=== PATIENT | female | born 1970 | race Caucasian/White ===

== ENCOUNTER 2025-08-25 10:55 | Outpatient (AMB) | payer OTHER, SELFPAY ==
--- NOTE | 2025-08-25 11:25 | A.PHYSOV ---
Vital Signs 08/25/25 11:27 Height 5 ft 6 in Weight 145 lb BMI 23.4 Intake Visit Reasons: [facility] REF-BACK + LOWER BACK PAIN Intake Note: Patient is a 55 year old female in office today as new patient neck pain and low back Allergies Penicillins Allergy (Unknown, Verified 08/25/25 11:27) Unknown HPI Comments Details: History of Present Illness The patient is a 55 year old individual presenting for evaluation of chronic neck and low back pain. The patient reports being in constant pain and having daily headaches. Headaches are reported in occipital region primarily. Headaches are rated 8/10. The patient has a history of C4-C7 ACDF. The patient also underwent an L5-S1 lumbar fusion a couple of years ago in [place]. The patient is currently awaiting surgical consultation. Most recent lumbosacral spine MRI was done on 09/01/2024. L5-S1 fusion was demonstrated. Images were independently reviewed. Broad-based disc osteophyte complex was described and demonstrated at the L4-L5 level with crowding of the traversing L5 nerve roots. She reports left lumbar radiculitis in the L5 dermatomal distribution. Cervical spine MRI was recently repeated on 06/09/2025. In images were reviewed. Anterior cervical diskectomy and fusion was demonstrated at the C4 through C7 levels, otherwise MRI was noncontributory. Mild facet arthropathy was demonstrated at the C2-C3 and C3-C4 level. For pain management, the patient is prescribed oxycodone-acetaminophen 10/325 mg to be taken three times a day but tries to limit usage to once or twice daily, which helps with sleep. Past treatments include injections, which offered minimal, short-term relief, and physical therapy many years ago, which was not helpful. The patient has previously tried gabapentin and duloxetine (Cymbalta) without benefit. The patient is on disability. Pain Description - Onset and Timing: The patient reports being in constant, chronic pain. - Location: Pain is located in the neck and lower back, with daily headaches at the base of the skull. - Radiation: Pain from the lower back radiates down the left leg to the top of the foot and big toe, with associated tingling. - Quality and Character: Neck movement causes a shocking pain. - Associated Symptoms: The patient also reports a new burning sensation under the arm. - Exacerbating Factors: Neck pain is worse with movement. - Exacerbating Factors: Low back pain is worse with sitting, and the left hip hurts when sitting or lying on that side. - Alleviating Factors: Neck pain is better when not moving the head. - Alleviating Factors: Walking with a shopping cart makes the back pain easier to manage. Results - Imaging: Cervical spine MRI from approximately 06/09/2025 showed multilevel fusion from C4-C7. - Imaging: Lumbar spine MRI 09/03/2024 as described above. - Imaging: Left hip MRI has been requested, currently pending. [facility] Medical History (Updated 08/25/25 @ 12:40 by Indio Oliver DO) Spondylosis of cervical region without myelopathy or radiculopathy Post laminectomy syndrome Lumbar radiculitis Cervicocranial syndrome Neck pain Surgical History (Updated 08/17/25 @ 10:54 by Ira Kennedy MA) History of carpal tunnel surgery (Unknown) History of neck surgery (Unknown) H/O bilateral breast reduction surgery (Unknown) H/O shoulder surgery (Unknown) Hx of hemorrhoidectomy (Unknown) History of back surgery (Unknown) Social History (Updated 08/25/25 @ 11:28 by Ira Kennedy MA) Household Members: Spouse Alcohol intake: current Alcohol intake frequency: a few times a week Patient Tobacco Use Status: Never used Tobacco Use of substances other than those prescribed or required for medical reasons: No Current occupational status: disabled Review of Systems Narrative Review of Systems - Neurological: Reports constant daily headaches. - Neurological: Reports shocking pain in the neck with movement. - Neurological: Reports pain radiating down the left leg with tingling in the top of the foot and big toe. - Neurological: Reports a burning sensation under the arm. - Musculoskeletal: Reports chronic pain in the neck and lower back. Physical Exam Exam Exam: Physical Exam - Musculoskeletal: Palpation of the neck demonstrates tenderness at the base of the skull and over the upper cervical facet area, which is also noted to be very tight. - Musculoskeletal: Palpation of the left hip reveals tenderness over the trochanteric area. Dural tension signs were negative. Gait was slightly antalgic on the left side. Cervical range of motion was restricted in all planes. Tenderness with palpation over upper cervical facet joints. Pain with posterior lumbar facet loading. Lumbar extension was restricted. SI provocative maneuvers were negative. Neurological examination reveals mild weakness of the left EHL, symmetric bilateral patellar and Achilles reflexes. Neurological examination of upper extremities was nonfocal. Patient demonstrated positive Leatha reflex. Babinski was downgoing bilaterally. Vital Signs: BMI result Body Mass Index 23.4 Assessment & Plan Assessment & Plan (1) Neck pain: Code(s): M54.2 - Cervicalgia Category: Medical (2) Cervicocranial syndrome: Code(s): M53.0 - Cervicocranial syndrome Category: Medical (3) Lumbar radiculitis: Code(s): M54.16 - Radiculopathy, lumbar region Category: Medical (4) Post laminectomy syndrome: Code(s): M96.1 - Postlaminectomy syndrome, not elsewhere classified Category: Medical (5) Spondylosis of cervical region without myelopathy or radiculopathy: Code(s): M47.812 - Spondylosis without myelopathy or radiculopathy, cervical region Category: Medical Plan Pain Management - Analgesia: The patient is prescribed oxycodone-acetaminophen 10/325 mg TID but self-limits to 1-2 doses per day. - Affect: The patient reports being in constant pain and restarted oxycodone because the pain was unbearable. - Activities of Daily Living: The patient is on disability and has difficulty walking any distance due to pain. - Aberrant Drug Related Behaviors: The patient reports taking less opioid medication than prescribed. Plan Patient was informed and verbally consented to the use of an ambient scribe for clinic note documentation during this visit. 1. Cervicogenic Headache The patient's daily headaches are assessed to be cervicogenic, likely originating from the facet joints above the C4-C7 fusion (C2-C3 and C3-C4), which are under increased stress. A plan was made for bilateral C2-C3 and C3-C4 facet injections to be performed with sedation at [facility]. It was discussed that if the injections provide only short-term relief, the patient would be a candidate for radiofrequency ablation, which would require a referral. 2. Chronic Low Back Pain And Left Lumbosacral Radiculopathy The patient's chronic low back pain with radiculopathy is likely multifactorial, stemming from post-surgical changes and degeneration above the L5-S1 fusion, likely at L4-L5, which does not appear surgical based on the prior MRI. The patient is awaiting a neurosurgery consultation. In the interim, a left L4 transforaminal injection will be performed in the office to address symptoms. Left trochanteric bursitis is also considered a contributor to lateral hip pain. Risks and benefits of the procedure were discussed with the patient. Potential alternative measures were also discussed. Patient understands that the procedure is completely elective. Potential side effects associated with injectable medications were discussed. All questions were answered to the patient's satisfaction. Discussion Notes I discussed with the patient that the daily headaches are likely cervicogenic, originating from the joints above the prior C4-C7 fusion. I recommended diagnostic and therapeutic bilateral C2-C3 and C3-C4 facet injections, to be performed with sedation at [facility]. I explained that if this provides good but temporary relief, the next step would be radiofrequency ablation, which would require a referral to another provider. The patient agreed with this plan. Regarding the low back pain and left leg radiculopathy, I explained that the symptoms seem to originate from the L4-L5 level, above the previous L5-S1 fusion. While the patient awaits a surgical consult, I offered a left L4 transforaminal epidural steroid injection, which can be done in the office without sedation. The patient consented to this procedure. I informed the patient that my staff will call to schedule the low back injection, and the hospital will call to schedule the neck injections. Patient Instructions - Our office will call you to schedule an injection in your lower back, which will be performed in the office. - [facility] will call you to schedule injections in your neck for your headaches. This procedure will be done with sedation. - Continue with your plan to see the spine surgeon for your lower back. - If the neck injections help but the pain returns quickly, the next step may be a procedure to burn the small nerve endings, which would require a referral to a different doctor. Orders: Referrals Physiatry Procedure Notification M47.812 - Spondylosis without myelopathy or radiculopathy, cervical region, M53.0 - Cervicocranial syndrome, M54.2 - Cervicalgia Coding Level of Care Code New Pt Level 4 (75783) Complex visit Add On G2211 Diagnoses Neck pain M54.2 Cervicocranial syndrome M53.0 Lumbar radiculitis M54.16 Post laminectomy syndrome M96.1 Spondylosis of cervical region without myelopathy or radiculopathy M47.815
[2025-08-25 11:27] VITALS: BMI 23.4
== END 2025-08-25 12:03 | disposition home or self-care (01) ==
LOC: HO.HPHYS 10:56
PROVIDERS: Visit Provider Physical Medicine & Rehabilitation
DX: M54.2 Cervicalgia (principal); M53.0 Cervicocranial syndrome; M54.16 Radiculopathy, lumbar region; M96.1 Postlaminectomy syndrome, not elsewhere classified; M47.812 Spondylosis without myelopathy or radiculopathy, cervical region
CPT/HCPCS: 99204; G2211

== ENCOUNTER 2025-09-07 08:35 | Day surgery (SDC) | payer OTHER, SELFPAY ==
[2025-09-03 09:51] VITALS: BMI 23.4
--- NOTE | ~2025-09-07 | FL_ITS ---
EXAMINATION: FL GUIDANCE ONLY HISTORY: Procedural guidance COMPARISON: None available. TECHNIQUE: Fluoroscopy time: 38 seconds. Cumulative Dose: 3.60 mGy. DAP: 158.74 uGym2 Images: 10. FINDINGS: Fluoroscopic spot films of the neck demonstrate needles and contrast material in place at multiple levels bilaterally. FL/FL guidance in OR IMPRESSION: Fluoroscopy during procedure. Please see procedure report for additional information. Electronically signed by: Erasto Dumont MD 09/08/2025 07:12 AM RAMIRO
[2025-09-07 09:29] VITALS: BMI 24.5
[2025-09-07] MEDS: Lactated Ringers 1,000 ML 50 ML IVCONT (09:44)
--- NOTE | 2025-09-07 09:59 | MHC.SHP ---
Pre-Procedural Eval Section A - 24 Hr Update-Section A only Date of Service: 09/07/25 The patient is an INPATIENT: No The patient has been examined within 24 hours of the surgical procedure. The History & Physical has been completed within 30 days and I have reviewed it.: Yes Section B - Complete if H&P > 30 days Chief Complaint: Spondylosis without myelopathy or radiculopathy, Allergies: Allergies Allergy/AdvReac Type Severity Reaction Status Date / Time Penicillins Allergy Unknown Unknown Verified 09/07/25 09:28 Plan I have reviewed the history and physical and performed a pertinent physical examination on my patient. No changes have occurred unless specified. Time Spent With Patient Time: Total time managing care of this patient today ____ minutes.
--- NOTE | 2025-09-07 10:01 | P.OP_ITS ---
Operative Note Operative Note Date of Service: 09/07/25 Narrative: Procedure performed: Bilateral C2-C3, C3-C4 facet injections Preop diagnosis: Cervical facet arthropathy Postop diagnosis: The same Anesthesia: Mac After informed consent was obtained, patient was brought into the procedure room and placed in the prone position on the procedure table. Skin over posterior aspect of the neck was prepped and draped in usual sterile manner. The facet joints indicated above were visualized utilizing fluoroscopy. For each joint 3.5 in 22 gauge spinal needle was introduced percutaneously and advanced to enter the joint cavity. Needle placement was verified utilizing 0.2 cc of Om nipaque contrast solution. Each joint received 1 cc of therapeutic solution containing 20 mg of triamcinolone and 2% lidocaine. Radiation exposure was reported and documented in the chart.
[2025-09-07 10:35] VITALS: BP 127/72; PULSE 69; RESP 16; TEMP 36.4; O2SAT 99
--- NOTE | 2025-09-07 10:49 | HO.ANESPROP2 ---
HPI - Anesthesia Eval Consult details Narrative: cerv inj PMFSH Active Problems Active Problems: All Active Problems Spondylosis of cervical region without myelopathy or radiculopathy (Acute) Post laminectomy syndrome (Acute) Lumbar radiculitis (Acute) Cervicocranial syndrome (Acute) Neck pain (Acute) Past Medical History Medical History Thyroid nodule Tinnitus Hyperlipidemia Depression GERD (gastroesophageal reflux disease) Obesity Fatty liver Anxiety Back pain Spondylosis of cervical region without myelopathy or radiculopathy Post laminectomy syndrome Lumbar radiculitis Cervicocranial syndrome Neck pain Family History Family history of problems with anesthesia: No Surgical History Surgical History Hx of wisdom tooth extraction H/O colonoscopy History of carpal tunnel surgery (Unknown) History of neck surgery (Unknown) H/O bilateral breast reduction surgery (Unknown) H/O shoulder surgery (Unknown) Hx of hemorrhoidectomy (Unknown) History of back surgery (Unknown) History of Problems with Anesthesia: No Social History Social History Household Members: Spouse Alcohol intake: current Alcohol intake frequency: a few times a week Patient Tobacco Use Status: Never used Tobacco Use of substances other than those prescribed or required for medical reasons: No Are you DNR?: No Advance Directives: No Advance Directives Information Provided: Yes Current occupational status: disabled Meds Allergies Allergy/AdvReac Type Severity Reaction Status Date / Time Penicillins Allergy Unknown Unknown Verified 09/07/25 09:28 Active Medications: Current Medications Lactated Ringer's (Lr) 1,000 mls @ 50 mls/hr IVCONT .Q20H CALOS Last Admin: 09/07/25 09:44 Dose: 50 mls/hr Home Medications ?Medication ?Instructions ?Recorded ?Confirmed ?Last Taken ?Type atorvastatin 20 mg tablet 20 mg PO DAILY 08/17/25 09/07/25 Unknown History oxycodone-acetaminophen 10 mg-325 1 tab PO TID PRN Pain 08/17/25 09/07/25 Unknown History mg tablet sertraline 100 mg tablet 100 mg PO DAILY 08/17/25 09/07/25 Unknown History tirzepatide (weight loss) 15 15 mg subcut QWEEK 08/17/25 09/07/25 08/26/25 History mg/0.5 mL subcutaneous pen injector (Zepbound) omeprazole 20 mg capsule,delayed 20 mg PO DAILY 09/07/25 09/07/25 Unknown History release Exam Height,Weight and Vital Signs: Height 5 ft 6 in Weight 69 kg Last Vital Signs Temp 97.6 F 09/07/25 10:35 Pulse 69 09/07/25 10:35 Resp 16 09/07/25 10:35 BP 127/72 09/07/25 10:35 Pulse Ox 99 09/07/25 10:35 O2 Del Method Room Air 09/07/25 10:35 Airway Mallampati Class: II TM Dist: >3cm Neck ROM: Full Heart: rrr Lungs: cta Assessment and Plan Assessment Anesthesia Assessment: Anesthesia Plan Discussed and Chart Reviewed Final Anesthetic Review Family History of Problems with Anesthesia: No History of Problems with Anesthesia: No NPO: Yes ASA Class: II Final Preanesthetic Review: No Changes in Pt Med Stat, Meds/Allgs Chart Reviewed, Consent Obtained/Reviewed and Anes Risks/Benef Reviewed Patient Risk: Low Procedure Risk: Low Anesthetic Plan Anesthetic Plan: MAC: and Agree w/ Assess. and Plan Disposition: Standard PACU
[2025-09-07 10:50] VITALS: BP 117/72; PULSE 65; RESP 12; TEMP 36.4; O2SAT 99
== END 2025-09-07 10:59 | disposition home or self-care (01) ==
PROVIDERS: PCP Internal Medicine; Visit Provider Physical Medicine & Rehabilitation
PROC: (CPT 64490; principal; 2025-09-07 10:10)
DX: M47.812 Spondylosis without myelopathy or radiculopathy, cervical region (principal); G89.29 Other chronic pain; M54.2 Cervicalgia; M53.0 Cervicocranial syndrome; R51.9 Headache, unspecified; M54.16 Radiculopathy, lumbar region; M54.50 Low back pain, unspecified; Z98.1 Arthrodesis status; Z88.0 Allergy status to penicillin; Z98.890 Other specified postprocedural states
CPT/HCPCS: 64490; 64491; J2003; J2250; J3301; Q9967

== ENCOUNTER → 2025-09-07 08:35 | Outpatient (BNV) | payer OTHER, SELFPAY | PROVIDERS: PCP Internal Medicine; Visit Provider Physical Medicine & Rehabilitation | DX: M47.812 Spondylosis without myelopathy or radiculopathy, cervical region (principal) | CPT/HCPCS: 64490; 64491 ==

== ENCOUNTER 2025-09-11 08:18 | Outpatient (AMB) | payer OTHER, SELFPAY ==
--- OUTSIDE RECORDS SUMMARY | 2025-09-10 23:59 | XMS_ITS | Continuity of Care Document ---
Author Organization [facility] Address [address] [place] [address]- Care Team Providers Care Special Education Preschool Teacher Name Role Phone Chester Mancera MD Primary [id number]): 09/03/25 - 09/10/25 [facility] [address] [place], [place] [address] Encounter Diagnosis Vertigo(Discharge Diagnosis) - 09/03/25 Back pain(Discharge Diagnosis) - 09/03/25 Left hip pain(Discharge Diagnosis) - 09/03/25 Attending Physician: Chester Mancera MD Encounter Type: Office Visit Allergies, Adverse Reactions, Alerts Substance Criticality Severity Reaction Reaction Severity Status penicillins rash and dyspnea A ctive Functional Status Functional Status Assessment Assessment Assessment Component Result Effecti ve Date Disability status [CUBS] I'm Thriving - no identified disability 09/03/25 Do you have serious difficulty walking or climbing stairs Yes 09/03/25 Do you need any carlos tional assistance or accommodations during your visit No 09/03/25 Do you have difficul ty dressing or bathing No 09/03/25 Are you blind, or do you have serious difficulty seeing, even when wearing glasses No 09/03/25 Difficulty Reading O r Writing No 09/03/25 Because of a physica l, mental, or emotional condition, do you have serious difficulty concentrating, remembering, or making decisions No 09/03/25 Because of a physica l, mental, or emotional condition, do you have difficulty doing errands alone such as visiting a physician's office or shopping No 09/03/25 Are you deaf, or do you have serious difficulty hearing No 09/03/25 Difficulty communica ting in usual language No 09/03/25 Immunizations Given and Recorded Vaccine Date Status Refusal Reason SARS-CoV-2 (COVID-19) mRNA-1273 vaccine 10/07/21 R ecorded SARS-CoV-2 (COVID-19) mRNA-1273 vaccine 01/07/21 R ecorded SARS-CoV-2 (COVID-19) mRNA-1273 vaccine 12/10/20 R ecorded influenza virus vaccine, inactivated 09/25/19 Adryan rded tetanus-diphtheria toxoids (Td) 02/27/19 Recorded tetanus-diphtheria toxoids (Td) 02/22/83 Recorded pneumococcal 23-valent vaccine 06/17/14 Given Measles/Mumps/Rubella Virus Vaccine 12/23/74 Recor ded Measles/Mumps/Rubella Virus Vaccine 07/25/74 Recor ded Medications atorvastatin 20 mg oral tablet 1 tablet = 20 mg, By Mouth, Daily, # 90 tablet, 1 Refills, Maintenance, 05/16/25 5:53:00 PM EDT, Tablet, [facility], Partial fill upon patient request if the prescription is for a schedule IIopioid drug., 167, cm, 05/11/25 8:53:00 EDT, Height, 70, kg, 05/11/25 8:53:00 EDT, Dry Weight Start Date: 05/16/25 Status: Ordered Medication Dispense Status: Completed Quantity: 90.0 Unit: tablet Total Allowed Fills: 2 Fills Dispensed: 0 ibuprofen 200 mg oral tablet 400 mg, 2, tablet, By Mouth, Every 4 hours, PRN, prn, # 120 tablet, Refills 0, Maintenance, for pain, 09/06/23 12:36:00 PM EST, Partial fill upon patient request if the prescription is for a scheduleII opioid drug. Start Date: 09/06/23 Status: Ordered Medication Dispense Status: Completed Quantity: 120.0 Unit: tablet Total Allowed Fills: 1 Fills Dispensed: 0 Omeprazole By Mouth, Daily, 0 Refills, Maintenance, 03/16/23 10:11:00 AM EDT, Partial fill upon patient requestif the prescription is for a schedule II opioid drug. Start Date: 03/16/23 Status: Ordered Medication Dispense Status: Completed Total Allowed Fills: 1 Fills Dispensed: 0 Percocet 10 mg-325 mg oral tablet 1 tablet, By Mouth, 3 times a day, PRN Pain , Severe, # 84 tablet, 0 Refills, Maintenance, :59:00 PM EST, [facility], Partial fill upon patient request if the prescription is for aschedule II opioid drug., 1 tablet By Mouth 3 times a day,PRN:Pain , Severe, 167, cm, 07/17/25 13:27:00 EDT, Height, 69.4, kg, 07/17/25 13:23:00 EDT, Dry Weight Start Date: 08/23/25 Status: Ordered Medication Dispense Status: Completed Quantity: 84.0 Unit: tablet Total Allowed Fills: 1 Fills Dispensed: 0 sertraline 100 mg oral tablet 1 tablet = 100 mg, By Mouth, Daily, TAKE 1 TABLET BY MOUTH EVERY DAY, # 90 tablet, 3 Refills, Maintenance, 02/26/25 5:11:00 PM EDT, Tablet, [facility], Partial fill upon patient request if theprescription is for a schedule II opioid drug., 167, cm, 08/22/24 8:45:00 EST, Height, 85, kg, 08/22/24 8:45:00 EST, Dry Weight Start Date: 02/26/25 Status: Ordered Medication Dispense Status: Completed Quantity: 90.0 Unit: tablet Total Allowed Fills: 4 Fills Dispensed: 0 Zepbound Pen 15 mg/0.5 mL subcutaneous solution = 15 mg, Subcutaneous Injection, Every week, rotate injection sites, # 2 mL, 2 Refills, Maintenance, 08/24/25 9:29:00 PM EST, Solution, [facility], Partial fill upon patient request if the prescription is for a schedule II opioid drug., 167, cm, 07/17/25 13:27:00 EDT, Height, 69.4, kg, 07/17/25 13:23:00 EDT, Dry Weight Start Date: 08/24/25 Status: Ordered Medication Dispense Status: Completed Quantity: 2.0 Unit: mL Total Allowed Fills: 3 Fills Dispensed: 0 Mental Status Mental Status Assessment Assessment Assessment Component Result Effecti ve Date Patient Health Questionnaire 2 item (PHQ-2) total score [Reported] 3 09/03/25 Mental Status Assessment Assessment Assessment Component Result Effecti ve Date Patient Health Questionnaire 9 item (PHQ-9) total score [Reported] 7 09/03/25 Problem List Condition Confirmation Course Effective Dates Status H ealth Status Informant Back pain Confirmed Active GERD (gastroesophageal reflux disease) Confirmed Active Generalized anxiety disorder Confirmed Active History of obesity Confirmed Active Hyperlipidemia Confirmed Active Mild major depression, single episode Confirmed Active Cervicalgia Confirmed Active EMILY (obstructive sleep apnea) Confirmed Active Fatty liver Confirmed Active Thyroid nodule; FNA 10/15, 09/15 benign Confirmed Active Tinnitus Confirmed Active Diagnosis Diagnosis Type Effective Dates Health Status Cl inical Service Informant Vertigo Discharge Diagnosis 09/03/25 Back pain Discharge Diagnosis 09/03/25 Left hip pain Discharge Diagnosis 09/03/25 Vital Signs Most recent to oldest [Reference Range]: 1 Height 167 cm (09/03/25 10:46 AM) Weight 70.2 kg (09/03/25 10:46 AM) Oxygen Saturation [94-100 %] 100 % (09/03/25 10:46 AM) Pulse Rate [55-90 bpm] 66 bpm (09/03/25 10:46 AM) Body Mass Index [18.5-24.99 kg/m2] 25.17 kg/m2 *H* (09/03/25 10:46 AM) Blood Pressure [90-138/55-84 mm Hg] 122/ 74mm Hg (09/03/25 10:46 AM) Mode of Delivery (Oxygen) Room air (09/03/25 10:46 AM) Blood pressure sites Arm, right (09/03/25 10:46 AM) Dry Weight 70.2 kg (09/03/25 10:46 AM) Weight Obtained Via Standing scale (09/03/25 10:46 AM) Dry Weight Obtained Via Standing scale (09/03/25 10:46 AM) Social History Social History Type Response Sexual Sexually involved in last 6 months: Yes. Gender of partner(s): Male. Smoking Status Former smoker, quit more than 30 days ago entered on: 03/02/22 Sex Sex Representation Female (finding) Note * Kiya Guevara: PERFORM Event Display: Patient Education/Instruction Authored Date: [id number] Ambulatory Adult Visit Summary [facility] [address] [place] [address] Name: MATT DASH : 1970?? Visit: 09/03/2025 10:20?? Ambulatory Visit Instructions ?? Your Care Team Primary Care Provider Chester Mancera MD? This Visit Provider Chester Mancera MD Vitals Signs Pulse Rate: 66 bpm Height: 167 cm Systolic Blood Pressure: 122 mm Hg Weight: 70.2 kg Diastolic Blood Pressure: 74 mm Hg Body Mass Index:??25.17 kg/m2??High Oxygen Saturation: 100 % Body surface area: 1.8 What to do next Follow-Up Appointments Follow up Appointment - Ordered?-- May followup, AND print physical therapy order, 09/03/25 11:33:00 EST Future Orders Lipid Panel - Routine, Once, 05/16/25 17:38:00 EDT, Order for Today, [facility], Blood?? Medications The list below reflects the information in our records and provided by you today along with any changes made during this visit. Please continue your medications until treatment is completed or stopped by your provider. If this is different from the information you have or there are other questions,please contact the prescribing provider. What How Much When Instructions Unchanged Atorvastatin (atorvastatin 20 mg oral tablet) 1 tab(s) Oral Daily Ordering Physician: Chester Mancera MD Unchanged Ibuprofen (ibuprofen 200 mg oral tablet) 2 tab(s) Oral Every 4 hours as needed for for pain Special Instructions: prn ?? Unchanged Omeprazole Oral Daily Unchanged Oxycodone / Acetaminophen (Percocet 10 mg-325 mg oral tablet) 1 tab(s) Oral 3 times a day as needed for Pain , Severe Ordering Physician: Chester Mancera MD Unchanged Sertraline (sertraline 100 mg oral tablet) 1 tab(s) Oral Daily Special Instructions: TAKE 1 TABLET BY MOUTH EVERY DAY Ordering Physician: Chester Mancera MD ?? Unchanged tirzepatide (Zepbound Pen 15 mg/ 0.5 mL subcutaneous solution) 15 Milligram Subcutaneous Injection Every week Special Instructions: rotate injection sites Ordering Physician: Chester Mancera MD ?? Medications and Immunizations Administered Medications Given During Visit No medications given during this visit.?? Allergies (NKA means No Known Allergies) penicillins??rash and dyspnea Common Emergency Awareness Tips IS IT A STROKE? Act FAST and Check for these signs: FACE Does the face look uneven? ARM Does one arm drift down? SPEECH Does their speech sound strange? TIME Call at any sign of stroke ?? Heart Attack Signs Chest discomfort: Most heart attacks involve discomfort in the center of the chest and lasts more than a few minutes, or goes away and comes back. It can feel like uncomfortable pressure, squeezing, fullness or pain. Discomfort in upper body: Symptoms can include pain or discomfort in one or both arms, back, neck, jaw or stomach. Shortness of breath: With or without discomfort. Other signs: Breaking out in a cold sweat, nausea, or lightheaded. Remember, MINUTES DO MATTER. If you experience any of these heart attack warning signs, call to get immediate medical attention! ?? Smoking can increase your chances of developing chronic health problems and can cause harmful effects to other family members in your house. If you smoke, you are strongly encouraged to quit. Please call [facility] at [phone] or [phone] ([phone]) or log in to [email or web address] for referrals to smoking cessation programs. ?? The National Suicide Prevention Hotline is available 16/04 if you or someone you know needs to find a reason to keep living. By calling 8-219-149-[employer] (8792) you'll be connected to a skilled, trained counselor at a crisis center in your area. [facility] Portal You can view and manage your care through the patient portal or by using a health care trish of your choosing. [facility] is a website that allows you to securely view your medical information including your hospital discharge summary, office visit summaries, medications and follow-up visits. You can also request appointments, renew medications, and request access to your medical information using a health care trish of your choosing, or just ask a question. You can enroll at [email or web address] or register during your next office visit. [facility], in keeping with [facility] guidance, no longer requires face masks for staff, patientsor visitors in most situations. Similiar to time spent indoors at other locations, there is the chance that you were exposed to repiratory viruses during your time with us (such as flu or COVID-19). If you develop symptoms concerning for a viral respiratory infection, please seek testing (and treatment if indicated) from your medical provider or home test kit. ?? Disclaimer: The information provided is of a general nature and is intended to be used in conjunction with the recommendations and advice of your health care practitioner. Every effort has been made to ensure that the information provided is accurate and complete at the time it is provided to you however, as your needs change, or, as new information becomes available, different or additional instructions may be required. ?? If you have questions, please consult with your primary care provider or pharmacist, as appropriate. This information is not intended to serve as substitution for assessment and evaluation by a qualified health care provider. If you do not have a primary care provider, you may find a [facility] provider by calling [facility] at [phone]. Patient Care team information Care Team Personnel Name: Alice Talavera RN Position: [facility] AMB Nurse Member Role: Primary Care Nurse Name: Chester Mancera MD Position: [facility] Physician - Primary Care Member Role: PCP Address: [address] [place] [id number] Telecom: Care Team Related Persons Name: GANGA DE LEON Name: STEPHEN DASH Insurance Providers Guarantor name: MATT DASH Health Plan Information #: 1 Payer: [employer] [facility] [employer] Payer Identifier: NA Member Number: [id number] Group Number: [id number] Subscriber Identifier: [id number] Relationship to Subscriber: self Coverage Type: Medicaid (Managed Care) Coverage Verification Date: NA Telecom: NA Address: NA
--- NOTE | 2025-09-11 08:21 | A.PHYSOV ---
Vital Signs 09/11/25 08:22 Height 5 ft 6 in Weight 150 lb BMI 24.2 BP 130/80 Blood Pressure Location Rt radial Position Sitting Pulse 73 Pulse Source Monitor Temp 98.2 F Temp Source Temporal Artery Scan Intake Visit Reasons: Left Lumbar Transforaminal Epidural L4 Intake Note: Patient is a 55 year old female in office today for a Left L4 Transforaminal Epidural Injection. Rehab Assistant Required: No Allergies Penicillins Allergy (Unknown, Verified 09/11/25 08:26) Unknown PFSH Medical History Thyroid nodule Tinnitus Hyperlipidemia Depression GERD (gastroesophageal reflux disease) Obesity Fatty liver Anxiety Back pain Spondylosis of cervical region without myelopathy or radiculopathy Post laminectomy syndrome Lumbar radiculitis Cervicocranial syndrome Neck pain Surgical History Hx of wisdom tooth extraction H/O colonoscopy History of carpal tunnel surgery (Unknown) History of neck surgery (Unknown) H/O bilateral breast reduction surgery (Unknown) H/O shoulder surgery (Unknown) Hx of hemorrhoidectomy (Unknown) History of back surgery (Unknown) Social History Household Members: Spouse Alcohol intake: current Alcohol intake frequency: a few times a week Patient Tobacco Use Status: Never used Tobacco Current occupational status: disabled Physical Exam Vital Signs: Last Vital Signs Temp 98.2 F 09/11/25 08:22 Pulse 73 09/11/25 08:22 BP 130/80 09/11/25 08:22 BMI result Body Mass Index 24.2 Office Procedures Procedure Details: Procedure performed: Left L4 transforaminal epidural steroid injection Preop diagnosis: Lumbar radiculitis Postop diagnosis: The same Anesthesia: Local After informed consent was obtained, patient was placed on the procedure table in a prone position. Skin over lumbosacral area was prepped and draped in usual sterile manner. Left L4 pedicle was visualized utilizing fluoroscopy. 3.5 inch 22 gauge spinal needle was introduced percutaneously and advanced towards the pedicle at about 6 o'clock position. Once level of neural foramina was reached, needle placement was verified utilizing 3 cc of Omnipaque contrast solution. Excellent flow through the neural foramina and epidural spread was identified without evidence of vascular uptake. Total volume of 6 cc containing 2 cc of 1% lidocaine, 40 mg of triamcinolone and normal saline solution were injected after negative aspiration for blood and cerebrospinal fluid. Radiation exposure was documented in the chart. Lumbar transforaminal Epidural Steroid Inj- use with FL Gd: 63595 - Single Procedure code (CPT) selection complete Office Meds Kenalog 40 mg/mL suspension for injection Performing Provider: Indio Oliver DO Performing Location: [facility] Administered by: Indio Oliver DO on 09/11/25 08:28 Dose Route Admin Location Dispensed Lot Number Expiration Date [facility] [employer] 40 mg epidural 1 mL [address]-4 [employer] Total Dispensed Waste 1 mL 0 % lidocaine (PF) 10 mg/mL (1 %) injection solution Performing Provider: Indio Oliver DO Performing [facility] Administered by: Indio Oliver DO on 09/11/25 08:28 Dose Route Admin Location Dispensed Lot Number Expiration Date [facility] [employer] Architect 50 mg epidural 5 mL [id number] [employer] Total Dispensed Waste 5 mL 0 % Omnipaque 300 300 mg iodine/mL intravenous solution Performing Provider: Indio Oliver DO Performing Location: [facility] Administered by: Indio Oliver DO on 09/11/25 08:28 Dose Route Admin Location Dispensed Lot Number Expiration Date [facility] Data [employer] Architect 3 mL epidural 10 mL [id number] [employer] Total Dispensed Waste 10 mL 70 % Assessment & Plan Assessment & Plan (1) Lumbar radiculitis: Code(s): M54.16 - Radiculopathy, lumbar region Category: Medical Plan: Procedure Orders: Orders FL Gd Lumbar Transforaminal In Today M54.16 - Radiculopathy, lumbar region AMB Lumbar transforaminal Epidural Steroid Injection Today M54.16 - Radiculopathy, lumbar region Coding Level of Care Code Procedure Only Diagnoses Lumbar radiculitis M54.16 CPT Codes Lumbar transforaminal Epidural Steroid I - CPT TRANSFORM: 55046 - Single ([id number])
[2025-09-11 08:22] VITALS: BP 130/80; PULSE 73; TEMP 36.8; BMI 24.2
--- OUTSIDE RECORDS SUMMARY | 2025-09-11 08:23 | XMS_ITS | Encounter Summary ---
Author Organization [facility] Address [facility] [address] [place] [address] Phone Care Team Providers Care Special Education Administrator Name Role Phone Chester Mancera MD Primary Care Provider [phone] Encounter Details Date Type Department Care Team (Late st Contact Info) Description 12/23/2021 Procedure Pass [facility] [address] [place] [address] Social History Tobacco Use Types Packs/Day Years Used Date Smoking Tobacco: Former Smokeless Tobacco: Never Comments:stopped at age 15 Comments No Sex and Gender Information Value Date Recorded Sex Assigned at Female 12/20/2021 4:27 PM EDT Legal Sex Female 10:07 AM EST Gender Identity Female 12/20/2021 4:27 PM EDT Sexual Orientation Straight 12/20/2021 4: 27 PM EDT documented as of this encounter Plan of Treatment Not on file documented as of this encounter Visit Diagnoses Not on filedocumented in this encounter Care Teams Special Education Administrator Relationship Specialty Start Date End Date Chester Mancera MD [address] [place] [id number] PCP - General Internal Medicine 08/22/21 documented as of this encounter Additional Source Comments The information contained in this document represents components of the legal health record. It is not the complete legal health record.[facility]
--- OUTSIDE RECORDS SUMMARY | 2025-09-11 08:23 | XMS_ITS | Encounter Summary ---
Author Organization [facility] Address [address] [place] [address] Phone Care Team Providers Care Munitions Handler Supervisor Name Role Phone Chester Mancera MD Primary Care Provider [phone]- [phone] Encounter Details Date Type Department Care Team (Late st Contact Info) Description 12/23/2021 Procedure Pass [facility] [address] [place] [address] Social History Tobacco Use Types Packs/Day Years [...] on filedocumented in this encounter Care Teams Munitions Handler Supervisor Relationship Specialty Start Date End Date Chester Mancera MD [address] [place] [address] PCP - General Internal Medicine 08/22/21 documented as of this encounter Additional Source Comments The information contained in this document represents components of the legal health record. It is not the complete legal health record.[facility]
--- OUTSIDE RECORDS SUMMARY | 2025-09-11 08:23 | XMS_ITS | Clinical Summary ---
Author Organization [employer] [facility] Address [address] [place] [address] Care Team Providers Care Active Directory Systems Administrator Name Role Phone PcpJamee Primary Care Provider [phone] Social History Tobacco Use Types Packs/Day Years Used Date Smoking Tobacco: Never Assessed Comments Unknown Sex and Gender Information Value Date Recorded Sex Assigned at Not on file Legal Sex Female 7:47 PM EDT Gender Identity Not on file Sexual Orientation Not on file Plan of Treatment Not on file Medical Devices Not on file Care Teams Active Directory Systems Administrator Relationship Specialty Start Date End Date Jamee Varela PCP - General Family Medicine 12/23/20
--- OUTSIDE RECORDS SUMMARY | 2025-09-11 08:23 | XMS_ITS ---
Author Name [facility] Organization Unknown Care Team Organization Name Specialty Phone Email Start Date End Da te [facility] Termed, PROVIDER Primary Care 10/02/202204/24 [facility] Termed, PROVIDER Primary Care 08/01/202204/24
--- OUTSIDE RECORDS SUMMARY | 2025-09-11 08:23 | XMS_ITS | Clinical Summary ---
Author Organization [facility] Address [address] [place] [id number] Phone Care Team Providers Care Pari Mutuel Clerk Name Role Phone Chester Mancera MD Primary Care Provider [phone] Allergies Active Allergy Reactions Criticality Noted Date Comments Penicillins High 07/05/2012 Rash and sob as a child Medications sertraline (ZOLOFT) 100 MG tablet Take 100 mg by mouth daily. 1 Active acetaminophen (TYLENOL) 325 mg tablet Take 2 tablets (650 mg total) by mouth every 6 (six) hours as needed for mild pain or fever. 0 2 Active oxyCODONE 5 MG immediate release tablet Take 1-2 tablets (5-10 mg total) by mouth every 4 (four) hours as needed for moderate pain. Partial fill ok 35 tablet 2 Active Additional Information Patient not taking.Reported on 04/05/2022 diazePAM (VALIUM) 5 MG tablet Take 1-2 tablets (5-10 mg total) by mouth every 6 (six) hours as needed. 5 tablet 2 Active Additional Information Patient not taking.Reported on 04/05/2022 ibuprofen (ADVIL,MOTRIN) 400 MG tablet Take 400 mg by mouth every 6 (six) hours as needed for pain (specific location in comments). Active Active Problems Problem Noted Date Diagnosed Date Lumbar back pain 12/23/2021 Immunizations No known immunizations Family History Medical History Relation Comments Heart disease Father Heart disease Mother Lymphoma Mother Relation Status Comments Father Mother Social History Tobacco Use Types Packs/Day Years Used Date Smoking Tobacco: Former Smokeless Tobacco: Never Comments:stopped at age 15 Education Answer Date Recorded Are you interested in more education? Not on elder e 01/20/2023 Are you concerned about learning? Not on file 01/20/2023 No 01/20/2023 No 01/20/2023 Digital Access Answer Date Recorded No 02/18/2023 No 02/18/2023 No 02/18/2023 Reliable internet access at home? Not on file 02/18/2023 Device with a working camera? Not on file Comments No Sex and Gender Information Value Date Recorded Sex Assigned at Female 12/20/2021 4:27 PM EDT Legal Sex Female 10:07 AM EST Gender Identity Female 12/20/2021 4:27 PM EDT Sexual Orientation Straight 12/20/2021 4: 27 PM EDT Last Filed Vital Signs Vital Sign Reading Time Taken Comments Blood Pressure 140/71 04/05/2022 11:36 AM EDT Pulse 57 04/05/2022 11:36 AM EDT Temperature 36.4 C (97.6 F) 04/05/2022 11:36 AM EDT Respiratory Rate 16 04/05/2022 11:3 6 AM EDT Oxygen Saturation 100% 04/05/2022 11: 36 AM EDT Inhaled Oxygen Concentration - - Weight 87.4 kg (192 lb 11.2 oz) 022 11:36 AM EDT Height 168 cm (5' 6.14 ) 04/05/2022 11: 36 AM EDT Body Mass Index 30.97 04/05/2022 11:36 AM EDT Plan of Treatment Health Maintenance Due Date Last Done Comments LIPID PANEL 1968 DEPRESSION SCREENING 1980 SMOKING Hx and SMOKELESS TOBACCO SCREENING 1981 HEPATITIS C SCREENING 1986 HIV ONE-TIME SCREENING (18-6 5 YEARS) 1986 PAP SMEAR 1989 MAMMOGRAM 2008 COLOGUARD 2013 COLONOSCOPY 2013 COLORECTAL CANCER SCREENING 2013 FIT TEST 2013 FOBT 2013 SIGMOIDOSCOPY 2013 VIRTUAL COLONOSCOPY 2013 PNEUMOCOCCAL VACCINES (50+ years) (2 of 2 - PCV) 2018 06/17/2014 ZOSTER VACCINES (1 of 2) 2018 INFLUENZA VACCINE (#1) 2025 , 07/05/2012 COVID-19 VACCINE (4 - 2024-2 6 season) 2025 10/07/2021, 01/07/2021, 12/10/2020 Adult Td,Tdap Booster 02/27/2029 02/27/2019 , 10/19/2008, 02/22/1983 RSV VACCINE (1 - 1-dose 75+ series) 2043 HEPATITIS A VACCINES Aged Out No long er eligible based on patient's age to complete this topic HIB VACCINES Aged Out No longer eligi ble based on patient's age to complete this topic MENINGOCOCCAL VACCINES (ACWY) Aged Out No longer eligible based on patient's age to complete this topic MENINGOCOCCAL VACCINES (B) Aged Out N o longer eligible based on patient's age to complete this topic Medical Devices Implanted Type Area Trauma Manager Device Identifier Shelf Expiration Date Model / Serial / Lot Graft Bone 10cc Allo Dbx Demineralized Matrix Freeze Dried Putty Syringe - [id number] Implanted:Qty: 1 on 12/23/2021 by Patito Marc MD at [facility] N/A: Back [employer] 08/24/2023 [id number] / [id number] / [id number] Graft Bone 10cc Allo Dbx Demineralized Matrix Freeze Dried Putty Syringe - [id number] Implanted:Qty: 1 on 12/23/2021 by Patito Marc MD at [facility] N/A: Back [employer] 12/23/2021 [id number] / [id number] / [id number] Graft Bone 1 To 8mm 15 Readi Allo Chip Cancellous Crushed Void Filler Preservon - [id number] Implanted:Qty: 1 on 12/23/2021 by Patito Marc MD at [facility] N/A: Back [employer] 10/25/2025 [id number] / [id number] / [id number] Screw Bone 5.5mm Spine Set Expedium Titanium Single Inner - [id number] Implanted:Qty: 4 on 12/23/2021 by Patito Marc MD at [facility] N/A: Back [facility] 12/23/2021 [id number] / [id number] / Spine Jeffrey 5.5x45mm Expedium Titanium Curved Lordotic Line Thoracolumbar - [id number] Implanted:Qty: 2 on 12/23/2021 by Patito Marc MD at [facility] N/A: Back [facility] 12/23/2021 [id number] / [id number] / Neck Fusions Screw Bone 7x40mm Spine Pedicle Expedium Polyaxial Titanium Dual Inner - [id number] Implanted:Qty: 2 on 12/23/2021 by Patito Marc MD at [facility] N/A: Back [facility] [employer] 12/23/2021 [id number] / [id number] / Screw Bone 5.5x7.0x45.0mm Spine Pedicle Cortical Expedium Polyaxial Titanium - [id number] Implanted:Qty: 2 on 12/23/2021 by Patito Marc MD at [facility] N/A: Back [facility] [employer] 12/23/2021 [id number] / [id number] / Cage Spine 9mm 11mm 26mm 15degree Tlx Implant - [id number] Implanted:Qty: 1 on 12/23/2021 by Patito Marc MD at [facility] N/A: Back [employer] 12/23/2021 [id number] / [id number] / Insurance PARTNERSHIP ACO ACO ACO ACO [facility] [place] [address] [place] [address] ACO Advance Directives For more information, please contact: [phone] (9AM - 5PM [facility], Sunday-Sunday) * Full Code (Latest Code Status on File) Date Activated Date Inactivated Comments 12/23/2021 11:13 PM Question Answer Comments Code Status Confirmed With: Patient Care Teams Pari Mutuel Clerk Relationship Specialty Start Date End Date Chester Mancera MD [address] [place] [id number] PCP - General Internal Medicine 08/22/21 Additional Source Comments The information contained in this document represents components of the legal health record. It is not the complete legal health record.[facility]
== END 2025-09-11 08:40 | disposition home or self-care (01) ==
LOC: HO.HPHYS 08:18
PROVIDERS: Visit Provider Physical Medicine & Rehabilitation
DX: M54.16 Radiculopathy, lumbar region (principal)
CPT/HCPCS: 64483

== ENCOUNTER 2025-09-11 08:18 | Outpatient (REF) | payer OTHER, SELFPAY | END 2025-09-11 08:19 | disposition home or self-care (01) | LOC: HO.HPHYSR 08:18 | PROVIDERS: Visit Provider Physical Medicine & Rehabilitation | DX: M54.16 Radiculopathy, lumbar region (principal) | CPT/HCPCS: 64483; J2003; J3301; Q9967 ==